=== PATIENT | female | born 1970 | race Caucasian/White ===

== ENCOUNTER 2022-12-01 09:02 | Outpatient (OUT) | payer OTHER, SELFPAY ==
--- NOTE | 2022-12-01 09:10 | ECG_ITS ---
[facility] Test Date: 2022-12-01 Pat Name: RODNEY INMAN Department: Room: - Gender: Female Heel Emery Buffer: : 1970 Requested By: TAWANA HUTSON Order Number: [id number] Reading MD: WILVER LENZ Measurements Intervals [place] Rate: 82 P: 10 TX: 128 QRS: 9 QRSD: 93 T: 35 QT: 379 QTc: 443 Interpretive Statements SINUS RHYTHM NONSPECIFIC T-WAVE ABNORMALITY No previous ECG available for comparison Electronically Signed On 12-02-2022 7:10:07 EDT by WILVER LENZ
--- NOTE | 2022-12-01 09:47 | P.GSHP_ITS ---
History of Present Illness History of Present Illness Chief complaint: right kidney stone, status right stent placement Narrative: Patient presents for preadmission testing. The patient states she has a kidney stone and had a stent placed on November 17 at [facility]. She states she is feeling better but she still notices some flank pain and frequency with urination. She denies nausea, vomiting, fever, or any other complaints. Review of Systems ROS Narrative REVIEW OF SYSTEMS: Negative except as stated in HPI, ten or more systems reviewed. Constitutional: No fever , chills, weakness ENT: No sore throat or epistaxis Cardiovascular: No edema, chest pain, palpitations, or activity intolerance Respiratory: No shortness of breath, cough, or wheezing Musculoskeletal: No joint pain or swelling Gastrointestinal: No abdominal pain, constipation, diarrhea, or vomiting Neurological: No numbness, tingling, weakness, or headache Psychiatric: No mood changes [facility] Medical History (Updated 12/01/22 @ 09:30 by Glenda Euceda NP) Surgical History (Updated 12/01/22 @ 09:30 by Glenda Euceda NP) Family History (Updated 12/01/22 @ 09:30 by Glenda Euceda NP) Other Family history of heart disease Social History (Updated 12/01/22 @ 09:27 by Glenda Euceda NP) Within the past year, how often did you have a drink containing alcohol: never Score interpretation: A score less than 3 is consistent with normal alcohol consumption. Smoking status: Never smoker Non-prescribed substance use: denies use Highest level of school completed/degree received: high school graduate Meds Home Medications and Allergies Home Medications Medication Instructions Recorded Confirmed Type cephalexin 500 mg capsule 500 mg PO QDAY 12/01/22 12/01/22 History insulin glargine 100 unit/mL (3 20 unit subcut BID 12/01/22 12/01/22 History mL) subcutaneous pen (Lantus Solostar U-100 Insulin) metformin 1,000 mg tablet 1,000 mg PO BID 12/01/22 12/01/22 History solifenacin 10 mg tablet 10 mg PO QDAY 12/01/22 12/01/22 History Allergies Allergy/AdvReac Type Severity Reaction Status Date / Time codeine Allergy Hallucinati Verified 12/01/22 09:24 ng Exam Narrative Exam Narrative: Constitutional: Awake, alert, comfortable, well-appearing, Poorly groomed, nontoxic, interactive, vital signs as charted Head: Normocephalic, atraumatic Neck: Supple, normal appearance, normal range of motion, no meningeal signs, no lymphadenopathy Respiratory: No respiratory distress, breath sounds clear Cardiovascular: Regular rate and rhythm, strong and regular heart tones Abdomen: Nontender, normal bowel sounds, soft, no CVA tenderness Musculoskeletal: Normal gait, no swelling or edema Skin: No rashes or induration, no lesions, only visible skin inspected Neuro: No neurological deficits, normal sensation Psychiatric: Oriented ?3, normal affect Assessment and Plan Assessment and Plan (1) Kidney stones: (2) S/P ureteral stent placement: Plan Cystoscopy, right ureteroscopy, holmium laser, possible right stent change or removal scheduled with Dr. Godoy 12/10/2022.
[2022-12-01 09:56] LABS: Anion Gap 13.1; Calcium 9.4 mg/dL (8.5-10.1); Carbon Dioxide 26.6 mmol/L (21.0-32.0); Chloride 99 mmol/L (98-107); Estimated GFR (African America >60 (>=60); Estimated GFR (Non-African Ame >60 (>=60); Glucose 148 mg/dL (74-106); Potassium 3.7 mmol/L (3.5-5.1); Sodium 135 mmol/L (136-145)
== END 2022-12-01 09:03 | disposition home or self-care (01) ==
PROVIDERS: Visit Provider Urology
DX: Z01.810 Encounter for preprocedural cardiovascular examination (principal); Z01.812 Encounter for preprocedural laboratory examination; N20.0 Calculus of kidney; E78.5 Hyperlipidemia, unspecified; E11.9 Type 2 diabetes mellitus without complications
CPT/HCPCS: 36415; 80048; 93005; G0463

== ENCOUNTER 2022-12-17 10:01 | Day surgery (SDC) | payer OTHER, SELFPAY ==
[2022-12-01 09:45] VITALS: BP 117/63; PULSE 84; RESP 20; TEMP 36.3; O2SAT 97; BMI 37.4
[2022-12-17] VITALS (10 sets, daily range): BP systolic 132–160; BP diastolic 58–81; PULSE 74–89; RESP 10–20; TEMP 36.3–37; O2SAT 92–99; BMI 36.6
[2022-12-17 10:29] LABS: HCG Qualitative NEGATIVE (NEGATIVE)
[2022-12-17 10:30] LABS: Glucometer 148 mg/dL (74-106)
[2022-12-17] MEDS: LACTATED RINGER'S SOLUTION 1,000 ML 50 ML IV ×2 (10:55→13:11)
[2022-12-17] MEDS: CEFAZOLIN SODIUM/DEXTROSE,ISO 1 GM/50 ML IV.SOLN IV (12:27)
--- NOTE | 2022-12-17 14:07 | PM.URSON ---
Urology Surgery Operative Note Operative Note Procedure Date: 12/17/22 Time Out Performed: yes Pre-op Diagnosis: 8 ureteral and right renal calculi; status post right stent placement Post-op Diagnosis: same as pre-op Procedures performed: #1. Cystoscopy. #2. Right stent removal. #3. Right rigid ureteral dilation. #4. Right ureteroscopy. #5. Holmium laser lithotripsy of right ureteral calculus. #6. Right pyeloscopy. #7. Holmium laser lithotripsy of multiple right renal calculi. #8. Stone fragment basket extraction. Anesthesia: GETA Primary Surgeon: Brian Godoy Complications: none Estimated blood loss (mL): 5 Findings: #1. Severely encrusted stent. #2. Right ureteral calculus. #3. Multiple right renal calculi. All stones are radiolucent. Specimens: right ureteral calculus fragment. Indications for Procedures: this 52-year-old lady had an obstructing right UPJ calculus approximately 14 mm in size. She also had multiple right renal calculi measuring up to 9 mm in size. She was stented about 3 months ago. She now presents for definitive ureteroscopic laser lithotripsy and basket extraction and possible stent change versus removal. She has signed an informed consent for these procedures after risks were explained. Detailed description of Procedure: The patient was brought to the operating room and placed on the operating room table in the supine position. SCDs were placed on the lower extremities and turned on and functioning during the entire case. Timeout was done by all parties in the room. We all agreed upon the patient's identification and the planned procedures for this patient. Gen. endotracheal. anesthesia was then administered. The patient was then repositioned into the modified dorsal lithotomy position. All pressure points were satisfactorily padded. Genitalia were sterilely prepped and draped in usual fashion.I started by passing a 22 [place] Olympus cystoscope per urethra and into the bladder. Panendoscopy in the bladder showed no evidence of tumors or stones. The stent was severely encrusted. I passed a flexible grasping forceps and with the jaws chewed off a fair amount of the encrustation so as to gain a purchase on the habematolel stent. The stent curl within the kidney was also encrusted. Fortunately, I was able to simply remove the stent. I then repassed the scope and the bladder and then slid a Glidewire through the scope and up the right ureter and into the kidney. The scope was removed. I then passed a 02/22 navigator ureteral access sheath over the wire and up the ureter to the L5 position. The stylette and wire were then removed. I then passed a flexible ureteroscope through the access sheath and into the ureter. I was able to get right to the stone. I then used a 200 ? holmium laser fiber and made contact with the stone and began doing laser lithotripsy at 10 W continuously on the dusting mode. I was able to entirely fragment this ureteral stone. I then went up tthe ureter and into the kidney and didn't pyeloscopy. I was able to get to the stones within the midpole calyces and dust those. I then dusted several others in the upper pole calyces. I also found some in the lower pole calyces which were dusted. A 0 tip nitinol basket was used to engage a few pieces and these were extracted out and sent for stone analysis. Fluoroscopically we are unable to see any stones. Endoscopically there was copious amounts of laser dust. There was some minute gravel. No significant fragments were remaining. I elected not to replace a stent. The scope was then removed and the ureter was reevaluated on the way down. No other stones were seen. There was no bleeding. The cystoscope was passed back in the bladder. The bladder was drained of its contents. The scope was then removed. The anesthetic was then reversed. She was then transferred to a [facility] bed and wheeled to PACU in stable condition.
--- NOTE | 2022-12-17 16:06 | PC.NURSE ---
pATIENT ATE 2 JELLO'S AND URINATED BLOOD TINGED URINE.
[2022-12-28 18:08] LABS: Size <1 mm (.)
== END 2022-12-17 15:48 | disposition home or self-care (01) ==
PROVIDERS: Visit Provider Urology
PROC: (CPT 918; principal; 2022-12-17 11:30)
DX: N20.0 Calculus of kidney (principal); E78.5 Hyperlipidemia, unspecified; E11.9 Type 2 diabetes mellitus without complications; Z79.4 Long term (current) use of insulin; Z79.84 Long term (current) use of oral hypoglycemic drugs; Z90.49 Acquired absence of other specified parts of digestive tract; N28.1 Cyst of kidney, acquired
CPT/HCPCS: 52353; 36415; 76000; 82365; 82948; 84703; 99999; J2704